=== PATIENT | male | born 1960 | race Caucasian/White ===

== ENCOUNTER 2016-04-28 16:24 | Emergency (ER) | payer BC, OTHER ==
[~2016-04-28] VITALS: Ht 177.8 cm; Wt 90.0 kg
[~2016-04-28 16:24] MED LIST: ATEN1TAB74 PO; CHLO25CA PO; PAXI20TA26 PO
[2016-04-28 16:26] VITALS: BP 184/120; PULSE 126; RESP 18; TEMP 98.2; O2SAT 95
[2016-04-28 16:36] VITALS: BP 161/106; PULSE 118; RESP 22; O2SAT 98
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
[2016-04-28] MEDS ORDERED: chlordiazePOXIDE 25 MG CAP PO ONE (17:15)
[2016-04-28 17:36] LABS: AUTOMATED NEUTROPHIL # 9.8 TH/MM3 (1.8-7.7); BASOPHIL # 0.1 TH/MM3 (0-0.2); BASOPHIL % 0.7 % (0.0-2.0); EOSINOPHIL # 0.1 TH/MM3 (0-0.4); EOSINOPHIL % 0.8 % (0.0-4.0); HEMO FLAGS DIFF FINAL; LYMPH % 21.9 % (9.0-44.0); LYMPHOCYTE # 3.2 TH/MM3 (1.0-4.8); MEAN CELL VOLUME 84.9 FL (80.0-100.0); MEAN CORPUSCULAR HEMOGLOBIN 29.2 PG (27.0-34.0); MEAN CORPUSCULAR HGB CONC 34.4 % (32.0-36.0); MONO % 8.6 % (0.0-8.0); PLATELET COUNT 225 TH/MM3 (150-450); WHITE BLOOD COUNT 14.4 TH/MM3 (4.0-11.0)
[2016-04-28 17:42] LABS: AMPHETAMINE, URINE NEG (NEG); BARBITURATES, URINE NEG (NEG); COCAINE, URINE NEG (NEG)
[2016-04-28 17:49] LABS: ANION GAP 9 MEQ/L (5-15); AST (GOT) 68 U/L (15-37); BICARBONATE 28.4 MEQ/L (21.0-32.0); BLOOD UREA NITROGEN 8 MG/DL (7-18); CHLORIDE 104 MEQ/L (98-107); GLOMERULAR FILTRATION RATE 73 ML/MIN (>89); POTASSIUM 3.4 MEQ/L (3.5-5.1); SODIUM (NA) 141 MEQ/L (136-145)
[2016-04-28 17:52] LABS: ALKALINE PHOSPHATASE 129 U/L (45-117); ALT (GPT) 66 U/L (12-78); TOTAL BILIRUBIN ADULT 0.4 MG/DL (0.2-1.0)
[2016-04-28] MEDS ORDERED: POTASSIUM CHLORIDE 20 MEQ CONTROLLED RELEASE TAB PO ONE (18:00)
[2016-04-28 21:17] VITALS: BP_SYST 170; BP_SYST 172; BP_DIAS 110; BP_DIAS 112; PULSE 98; RESP 17; O2SAT 96
[2016-04-28] MEDS ORDERED: CLON0.2T PO (21:35)
[2016-04-28] MEDS ORDERED: cloNIDine HCL 0.2 MG TAB PO ONE (21:45)
[2016-04-28 22:15] VITALS: BP 155/98; PULSE 104; RESP 17; O2SAT 98
[2016-04-28 22:19] VITALS: BP 155/98
== END 2016-04-28 22:30 | disposition home or self-care (01) ==
LOC: NEPJ 16:24
DX: Z02.89 Encounter for other administrative examinations (principal); F10.20 Alcohol dependence, uncomplicated; R45.851 Suicidal ideations; I10 Essential (primary) hypertension; E78.00 Pure hypercholesterolemia, unspecified; Z86.59 Personal history of other mental and behavioral disorders; Z86.79 Personal history of other diseases of the circulatory system; Z87.19 Personal history of other diseases of the digestive system; Z87.39 Personal history of other diseases of the musculoskeletal system and connective tissue; Z86.69 Personal history of other diseases of the nervous system and sense organs
CPT/HCPCS: 80053; 80307; 85025; 99284

== ENCOUNTER 2017-01-09 22:07 | Emergency (ER) | payer OTHER, BC ==
[~2017-01-09] VITALS: Ht 177.8 cm; Wt 80.0 kg
[~2017-01-09 22:07] MED LIST changes: +CLON0.2T PO
[2017-01-09 22:22] VITALS: BP 127/82; PULSE 90; RESP 16; TEMP 98.2; O2SAT 99
[2017-01-09] MEDS ORDERED: NALOXONE HCL 2 MG/2 ML VIAL ONE (22:29)
[2017-01-09 22:59] LABS: AUTOMATED NEUTROPHIL # 8.8 TH/MM3 (1.8-7.7); BASOPHIL # 0.1 TH/MM3 (0-0.2); BASOPHIL % 0.5 % (0.0-2.0); EOSINOPHIL % 0.4 % (0.0-4.0); HEMATOCRIT 41.2 % (39.0-51.0); HEMO FLAGS DIFF FINAL; LYMPH % 15.6 % (9.0-44.0); LYMPHOCYTE # 1.8 TH/MM3 (1.0-4.8); MEAN CELL VOLUME 86.1 FL (80.0-100.0); MEAN CORPUSCULAR HEMOGLOBIN 29.3 PG (27.0-34.0); MONO % 6.3 % (0.0-8.0); NEUT % 77.2 % (16.0-70.0); PLATELET COUNT 201 TH/MM3 (150-450); RED BLOOD COUNT 4.78 MIL/MM3 (4.50-5.90); RED CELL DISTRIBUTION WIDTH 13.8 % (11.6-17.2); WHITE BLOOD COUNT 11.4 TH/MM3 (4.0-11.0)
[2017-01-09 23:01] LABS: BLOOD, URINE NEG (NEG); GLUCOSE,URINE NEG (NEG); KETONE, URINE NEG (NEG); NITRITE,URINE NEG (NEG); PH, URINE 6.5 (5.0-8.5); URINE COLOR COLORLESS (YELLW/STRAW)
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
[2017-01-09 23:04] LABS: COMMENT (UR) CULT NOT INDICATED; CULTURE IF INDICATED CULT NOT INDICATED
[2017-01-09 23:09] LABS: APTT (PATIENT) 21.7 SEC (24.3-30.1); PROTHROMBIN TIME - PATIENT 9.8 SEC (9.8-11.6)
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
[2017-01-09 23:22] LABS: BLOOD GAS BASE EXCESS -3.3 mmol/L (-2-2); BLOOD GAS CARBOXYHEMOGLOBIN 1.1 % (0-4); BLOOD GAS HCO3 21 mmol/L (22-26); BLOOD GAS METHEMOGLOBIN 0.6 % (0-2); BLOOD GAS O2 HGB SATURATION 95 % (90-100); BLOOD GAS OXYGEN CONTENT 18.5 Vol % (12.0-20.0); BLOOD GAS PCO2 39 mmHg (38-42); BLOOD GAS PO2 98 mmHG (61-120); BLOOD GAS TOTAL HGB 13.8 G/DL (12.0-16.0); CRITICAL VALUE NO; DRAW SITE RT RADIAL; NUMBER OF ARTERIAL PUNCTURES 2; OXYGEN DEVICE NASAL CANNULA; STAT YES; ULNAR PULSE PRESENT; VENT SETTINGS 3
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
[2017-01-09 23:23] LABS: ACETAMINOPHEN LESS THAN 2.0 MCG/ML (10.0-30.0); ALKALINE PHOSPHATASE 97 U/L (45-117); CREATINE KINASE 271 U/L (39-308); TOTAL BILIRUBIN ADULT 0.2 MG/DL (0.2-1.0)
[2017-01-09 23:25] VITALS: O2SAT 99
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
[2017-01-09 23:27] LABS: ALT (GPT) 76 U/L (12-78); AST (GOT) 49 U/L (15-37); BLOOD UREA NITROGEN 13 MG/DL (7-18); CHLORIDE 110 MEQ/L (98-107); GLOMERULAR FILTRATION RATE 89 ML/MIN (>89)
[2017-01-09 23:28] LABS: ALCOHOL 379 MG/DL (0-5); ANION GAP 14 MEQ/L (5-15); BICARBONATE 19.9 MEQ/L (21.0-32.0); MAGNESIUM 2.1 MG/DL (1.5-2.5); POTASSIUM 3.2 MEQ/L (3.5-5.1); SODIUM (NA) 144 MEQ/L (136-145)
[2017-01-09] MEDS ORDERED: SODIUM CHLOR 0.9% 1000 ML INJ 1,000 ML IV SCH (23:30)
[2017-01-09] MEDS ORDERED: NALOXONE HCL 2 MG/2 ML VIAL IV PUSH ONE (23:30)
[2017-01-09] MEDS ORDERED: ONDANSETRON HCL 4 MG/2 ML VIAL IV PUSH ONE (23:30)
[2017-01-09 23:41] LABS: CKMB 2.8 NG/ML (0.5-3.6)
[2017-01-10] MEDS ORDERED: THIAMINE INJ 100 MG in SODIUM CHLORIDE 0.9% INJ 100 ML IV ONE (00:15)
[2017-01-10] MEDS ORDERED: DIPHTH/TETANUS/ACEL PERTUSSIS (BOOSTER) 0.5 ML VIAL/PFS IM ONE (00:15)
[2017-01-10] MEDS ORDERED: ceFAZolin 2 GM PREMIX 50 ML IV ONE (00:15)
[2017-01-10 00:18] VITALS: BP 138/91; PULSE 80; RESP 18; O2SAT 96
[2017-01-10 00:40] VITALS: BP 118/68; PULSE 78; RESP 18; O2SAT 98
[2017-01-10 01:17] VITALS: BP 120/69; PULSE 78; RESP 18; O2SAT 99
[2017-01-10] MEDS ORDERED: POTASSIUM CHLOR 10 MEQ PREMIX 100 ML IV ONE (02:30)
[2017-01-10] MEDS ORDERED: ONDANSETRON HCL 4 MG/2 ML VIAL IV ONE (03:15)
[2017-01-10] MEDS ORDERED: POTASSIUM CHLORIDE 25 MEQ EFFERVESCENT TAB PO ONE (04:00)
--- NOTE | 2017-01-10 19:25 | EKG ---
Date Performed: 01/09/2017 Time Performed: 23:17:20 PTAGE: 56 years EKG: Sinus rhythm NONSPECIFIC T-WAVE ABNORMALITY Since previous tracing, no significant change noted BORDERLINE ECG PREVIOUS TRACING : 12/01/2007 19.50 DOCTOR: Reina Henry Interpretating Date/Time 01/10/2017 19:23:22
== END 2017-01-10 07:20 ==
LOC: NEPE 22:07
DX: R41.82 Altered mental status, unspecified (principal); F10.129 Alcohol abuse with intoxication, unspecified; S40.022A Contusion of left upper arm, initial encounter; S60.812A Abrasion of left wrist, initial encounter; S60.811A Abrasion of right wrist, initial encounter; S80.212A Abrasion, left knee, initial encounter; S80.211A Abrasion, right knee, initial encounter; S90.812A Abrasion, left foot, initial encounter; V49.9XXA Car occupant (driver) (passenger) injured in unspecified traffic accident, initial encounter
CPT/HCPCS: 36600; 70450; 71010; 72125; 72170; 73030; 73110; 73630; 80053; 80307; 81001; 82140; 82550; 82552; 82805; 83690; 83735; 83880; 83930; 83935; 84484; 85025; 85610; 85730; 90471; 90715; 93005; 96361; 96365; 96366; 96368; 96375; 99285; J0690; J2310; J2405; J3411; J7030; J3480

== ENCOUNTER 2017-12-09 09:50 | Observation (INO) ==
[2017-12-09 11:51] LABS: Baso # (Auto) 0.1 th/mm3 (0.0-0.2); Baso % (Auto) 0.8 % (0.0-2.0); Eos # (Auto) 0.2 th/mm3 (0.0-0.4); Eos % (Auto) 1.6 % (0.0-4.0); Hematocrit 42.8 % (39.0-51.0); Hemoglobin 15.1 gm/dL (13.0-17.0); Lymph % (Auto) 19.5 % (9.0-44.0); Mean Corpuscular HGB Conc 35.3 % (32.0-36.0); Mean Platelet Volume 8.9 fL (7.0-11.0); Mono # (Auto) 0.9 th/mm3 (0.0-0.9); Mono % (Auto) 8.4 % (0.0-8.0); Neut # (Auto) 7.1 th/mm3 (1.8-7.7); Neut % (Auto) 69.7 % (16.0-70.0); Platelet Count 179 th/mm3 (150-450); Red Blood Count 5.03 mil/mm3 (4.50-5.90); Red Cell Distribution Width 14.6 % (11.6-17.2); White Blood Count 10.2 th/mm3 (4.0-11.0)
[2017-12-09 12:13] LABS: Alanine Aminotransferase 55 U/L (12-78); Albumin 3.9 g/dL (3.4-5.0); Anion Gap 8 meq/L (5-15); Aspartate Aminotransferase 47 U/L (15-37); Blood Urea Nitrogen 24 mg/dL (7-18); Carbon Dioxide 23.8 meq/L (21.0-32.0); Chloride 112 meq/L (98-107); Glomerular Filtration Rate 67 mL/min (>89); Glucose,Random 87 mg/dL (74-106); Sodium 144 meq/L (136-145)
[2017-12-09 12:15] LABS: Alkaline Phosphatase 100 U/L (45-117); Total Protein 7.4 g/dL (6.4-8.2)
[2017-12-09 12:44] LABS: Activated Partial Thrombo Time 24.3 sec (23.4-31.7)
[2017-12-09] MEDS ORDERED: Acetaminophen 325 MG Tablet PO PRN (13:17)
--- NOTE | 2017-12-09 13:55 | ED ---
HPI General Chief Complaint: Neuro Symptoms/Deficit Stated Complaint: Poss MRI Follow Up/Doctor Sent Time Seen by Provider: 12/09/17 10:57 History of Present Illness HPI Narrative: This patient has had waxing and waning neurologic symptoms for 5 weeks. He has had headaches and blurry vision and some speech slurring issues. He has not had any definitive motor weakness. His neurologist Dr. Mojica ordered an outpatient MRI of the brain this morning. He got the results and was referred to the emergency room. Symptoms moderately severe. Duration is 5 weeks. No alleviating factors. No exacerbating factors. He denies blood thinners. He is on a baby aspirin. Related Data Home Medications Medication Instructions Recorded Confirmed dronedarone [Multaq] 400 mg PO BID 12/09/17 12/09/17 indomethacin 50 mg PO TID PRN 12/09/17 12/09/17 pantoprazole 20 mg PO DAILY 12/09/17 12/09/17 topiramate 50 mg PO DAILY 12/09/17 12/09/17 Allergies Allergy/AdvReac Type Severity Reaction Status Date / Time No Known Allergies Allergy Verified 12/09/17 10:09 Review of Systems ROS: all other systems reviewed are negative PMFSH Social History Social History Substance History: No History of Abuse Second Hand Smoke Exposure: No Smoking Status: Never smoker How Often Do You Have a Drink Containing Alcohol: Never Recent Travel in [facility] within the Last 8 Weeks: No Recent Out of Country Travel within the Last 8 Weeks: No Immunization History Tetanus Immunization: <5 Years Exam Narrative Exam Narrative: GENERAL: Well-nourished, well-developed patient in no apparent distress. SKIN: Focused skin assessment reveals no rash and nodules. Skin is Warm and dry. HEAD: Atraumatic. Normocephalic. EYES: Pupils equal and round. No scleral icterus. No injection or drainage. ENT: No nasal bleeding or discharge. Mucous membranes pink and moist. NECK: Trachea midline. No JVD. CARDIOVASCULAR: Regular rate and rhythm. No murmur appreciated. RESPIRATORY: No accessory muscle use. Clear to auscultation. Breath sounds equal bilaterally. GASTROINTESTINAL: Abdomen soft, non-tender, nondistended. Hepatic and splenic margins not palpable. MUSCULOSKELETAL: No obvious deformities. No clubbing. No cyanosis. No edema. NEUROLOGICAL: Awake and alert. No obvious cranial nerve deficits. Motor grossly within normal limits. Normal speech. PSYCHIATRIC: Appropriate mood and affect; insight and judgment normal. Course Initial Documented Vital Signs Temperature 98.2 F 12/09/17 09:55 Pulse Rate 78 12/09/17 09:55 Respiratory Rate 20 12/09/17 09:55 Blood Pressure 129/72 12/09/17 09:55 Pulse Oximetry 98 12/09/17 09:55 Last Documented Vital Signs Temperature 98.2 F 12/09/17 09:55 Pulse Rate 76 12/09/17 10:24 Respiratory Rate 17 12/09/17 10:24 Blood Pressure 152/83 H 12/09/17 10:24 Pulse Oximetry 99 12/09/17 10:24 Medical Decision Making MDM Narrative Medical decision making narrative: This is a 57-year-old male with 5 weeks of waxing and waning neurologic symptoms and abnormal small brainstem infarct in questioning some carotid artery dissection versus obstruction. I reviewed the case in detail with the patient's neurologist Dr. Mojica. He recommends admission and consultation with the on-call neurologist as he does not come here. He recommends CTA of the carotids to further detail them. I have ordered imaging. His labs are reasonably normal. I have reviewed with the hospitalist who will admit Medical Screen Exam Complete: Yes Emergency Medical Condition: Yes Differential Diagnosis Differential Diagnosis: Ischemic CVA, intracranial hemorrhage, carotid dissection Medical Records Medical records reviewed: Yes I reviewed the patient's medical records. Lab Data Lab results narrative: Labs are normal Result diagrams: 12/09/17 11:35 12/09/17 11:35 Lab Results 12/09/17 12/09/17 12/09/17 Range/Units 11:35 11:35 11:45 WBC 10.2 (4.0-11.0) th/mm3 RBC 5.03 (4.50-5.90) mil/mm3 Hgb 15.1 (13.0-17.0) gm/dL Hct 42.8 (39.0-51.0) % MCV 85.0 (80.0-100.0) fL MCH 30.0 (27.0-34.0) pg MCHC 35.3 (32.0-36.0) % RDW 14.6 (11.6-17.2) % Plt Count 179 (150-450) th/mm3 MPV 8.9 (7.0-11.0) fL Neut % (Auto) 69.7 (16.0-70.0) % Lymph % (Auto) 19.5 (9.0-44.0) % [place] % (Auto) 8.4 H (0.0-8.0) % Eos % (Auto) 1.6 (0.0-4.0) % Baso % (Auto) 0.8 (0.0-2.0) % Neut # (Auto) 7.1 (1.8-7.7) th/mm3 Lymph # (Auto) 2.0 (1.0-4.8) th/mm3 [place] # (Auto) 0.9 (0.0-0.9) th/mm3 Eos # (Auto) 0.2 (0.0-0.4) th/mm3 Baso # (Auto) 0.1 (0.0-0.2) th/mm3 WBC Differential . Differential Comment Auto diff final PT 10.0 (9.8-11.6) sec INR 1.0 Ratio APTT 24.3 (23.4-31.7) sec Sodium 144 (136-145) meq/L Potassium 4.0 (3.5-5.1) meq/L Chloride 112 H (98-107) meq/L Carbon Dioxide 23.8 (21.0-32.0) meq/L Anion Gap 8 (5-15) meq/L BUN 24 H (7-18) mg/dL Creatinine 1.13 (0.60-1.30) mg/dL Estimated GFR 67 L (>89) mL/min Random Glucose 87 (74-106) mg/dL Calcium 9.0 (8.5-10.1) mg/dL Total Bilirubin 0.5 (0.2-1.0) mg/dL AST 47 H (15-37) U/L ALT 55 (12-78) U/L Alkaline Phosphatase 100 (45-117) U/L Total Protein 7.4 (6.4-8.2) g/dL Albumin 3.9 (3.4-5.0) g/dL Discharge Plan Discharge Disposition Patient Disposition: 30 Still Patient Discharge Details Diagnosis: Brain stem infarction Physicians Team ED Provider: Arnoldo Robins Primary Care Provider: UNKNOWN, Other Providers: Niki Edwards Rxs /Orders / Referrals /Forms Prescriptions: No Action topiramate 25 mg Tablet 50 mg PO DAILY RF: 0 pantoprazole 20 mg Tablet,Delayed Release (Dr/Ec) 20 mg PO DAILY RF: 0 indomethacin 25 mg Capsule 50 mg PO TID PRN (Reason: Headache) RF: 0 dronedarone [Multaq] 400 mg Tablet 400 mg PO BID RF: 0 Discharge Interventions Interventions: Vital Signs Last Done: 12/09/17 10:24 Status ED Status: With Doctor
[2017-12-09] MEDS ORDERED: Heparin - SQ 10,000 UNITS/ML Vial SQ SCH (14:00)
--- NOTE | 2017-12-09 14:46 | CT ---
EXAM DATE: 12/09/2017 2:35 PM EDT AGE/SEX: 57 years / Male INDICATIONS: Headache, dizziness, and visual disturbances for one month. MRI this [place] at [facility] [place]. CLINICAL DATA: This is the patient's initial encounter. Patient reports that signs and symptoms have been present for 1 month and indicates a pain score of 5/10. MEDICAL/SURGICAL HISTORY: None. None. RADIATION DOSE: 40.64 CTDI (mGy) COMPARISON: [place], [place] BRAIN W/O CONTRAST, 12/09/2017[place] [facility] [place]/09/2017. . TECHNIQUE: CT of the head without contrast. Using automated exposure control and adjustment of the mA and/or kV according to patient size, radiation dose was kept as low as reasonably achievable to ob tain optimal diagnostic quality images. DICOM format image data is available electronically for revi ew and comparison. FINDINGS: Cerebrum: The ventricles are normal. There is mild generalized atrophy. No midline shift, mass lesio n, hemorrhage or acute infarction. No extraaxial fluid collections are seen. Posterior Fossa: The cerebellum and brainstem demonstrate no acute abnormality. The 4th ventricle is midline. The cerebellopontine angle is within normal limits. Extracranial: The visualized sinuses are clear. Skull: The calvaria is intact. No skull fracture. CONCLUSION: 1. No acute intracranial abnormality is identified in this noncontrast examination. Overall, no sign ificant change is appreciated compared to 01/09/2017 examination. The small infarct documented on toda y's outside MRI in the right medulla cannot be identified on this exam. 2. Today's MRI also documented abnormal signal within the right intracranial internal carotid artery indicating possible dissection or occlusion. . Electronically signed by: Sy Austin MD 12/09/2017 2:44 PM EDT
--- NOTE | 2017-12-09 15:19 | P.HP ---
History of Present Illness Primary Care Physician: UNKNOWN History of Present Illness: 57-year-old male with a history of migraines in atrial fibrillation presents to the ER on recommendation from his neurologist after an MRI revealed infarction of the brainstem coupled with possible occlusion of the right internal carotid artery. His symptoms began acutely on November 04 when he was at the gym lifting weights. He stood up and had immediate pressure behind his right eye, followed by a bright aura in the eye and associated dizziness. A kaleidoscope effect persisted in that eye and the next day he visited an mechanism inspector who told him it was an ocular migraine. The symptoms persisted for 2 weeks and then mostly resolved. However, headaches have been worsening since the event. He has right facial numbness intermittently. He gets a right temporal headache that shoots to his right jaw. He commonly gets a posterior headache that is associated with positional changes. His primary care physician referred him to cardiology given his history of atrial fibrillation, he received an echocardiogram, electrocardiac evaluation, stress test 2 weeks ago, but all of these tests were normal. He has also had associated numbness on the posterior aspect of his left arm extending from his elbow to his fingertips that is made worse with weightlifting activity. He also reports that he gets words backwards at times. He has atrial fibrillation that runs in his family, had A. fib at a young age but had an ablation in 2016 without recurrence since then. He denies any nausea vomiting or diarrhea. Review of Systems All other systems reviewed negative except as stated in HPI PMFSH - History History Provided By: Patient - Medical History Medical History: Medical History (Last Updated 12/09/17 @ 15:13 by Renzo Burkett MD) Atrial fibrillation Migraines - Surgical History Surgical History: Surgical History (Last Updated 12/09/17 @ 15:13 by Renzo Burkett MD) H/O hernia repair - Family History Family History: Family History (Last Updated 12/09/17 @ 15:14 by Renzo Burkett MD) Other Atrial fibrillation Coronary artery disease Hypertension Migraines Type 2 diabetes mellitus - Tobacco History Second Hand Smoke Exposure: No Tobacco Use In Past 30 Days: No Smoking Status: Never smoker - Alcohol History How Often Do You Have a Drink Containing Alcohol: Never - Substance Use History Substance History: No History of Abuse - Travel History Recent Travel in the [facility] Within the Last 8 Weeks: No Recent Travel Out of the Country Within the Last 8 Weeks: No - Immunization History Tetanus Immunization: <5 Years Medications and Allergies Active Medications: Active Medications Acetaminophen (Tylenol) 650 mg PO Q4H PRN PRN Reason: Temp > 100.4 Heparin Sodium (Porcine) (Heparin Inj) 5,000 units SQ Q12H RAFFI Last Admin: 12/09/17 14:16 Dose: 5,000 units Ondansetron HCl (Zofran Inj) 4 mg IV.PUSH Q6H PRN PRN Reason: NAUSEA OR VOMITING Sennosides (Senokot) 17.2 mg PO Q12H PRN PRN Reason: Moderate Constipation Allergies Allergy/AdvReac Type Severity Reaction Status Date / Time No Known Allergies Allergy Verified 12/09/17 10:09 Home Medications Medication Instructions Recorded Confirmed Type dronedarone [Multaq] 400 mg PO BID 12/09/17 12/09/17 History indomethacin 50 mg PO TID PRN 12/09/17 12/09/17 History pantoprazole 20 mg PO DAILY 12/09/17 12/09/17 History topiramate 50 mg PO DAILY 12/09/17 12/09/17 History Exam Vital signs: Vital Signs 12/09/17 09:55 12/09/17 10:24 Temperature 98.2 F Pulse Rate 78 76 Respiratory Rate 20 17 Blood Pressure 129/72 152/83 H Pulse Oximetry 98 99 Intake & Output 12/08/17 12/09/17 12/09/17 18:59 06:59 18:59 Weight 84.368 kg Narrative: GENERAL: AAOx3, no acute distress, adequate nutrition SKIN: Warm and dry, no rashes. HEAD: Atraumatic. Normocephalic. EYES: Pupils equal, round, reactive to light. No scleral icterus. No injection or drainage. ENT: No nasal bleeding or discharge. Moist mucous membranes. Nonerythematous oropharynx. NECK: Trachea midline. No JVD. Thyroid size within normal limits. CARDIOVASCULAR: Regular rate and rhythm. No murmur, no gallops, no rubs. RESPIRATORY: Clear and equal to auscultation bilaterally. No crackles, no wheezes. No accessory muscle use. GASTROINTESTINAL: Abdomen soft, non-tender, nondistended, normal active bowel sounds. Hepatic and splenic margins not palpable. MUSCULOSKELETAL: Extremities without clubbing or cyanosis. No obvious deformities. No edema. NEUROLOGICAL: Awake and alert. No obvious cranial nerve deficits. Motor grossly within normal limits. No focal deficits. Five out of 5 muscle strength in the arms and legs. Normal speech. PSYCHIATRIC: Appropriate mood and affect; insight and judgment normal. Results - Labs CBC & Chem 7: 12/09/17 11:35 12/09/17 11:35 Labs: Laboratory Results - last 24 hr 12/09/17 12/09/17 12/09/17 11:35 11:35 11:45 WBC 10.2 RBC 5.03 Hgb 15.1 Hct 42.8 MCV 85.0 MCH 30.0 MCHC 35.3 RDW 14.6 Plt Count 179 MPV 8.9 Neut % (Auto) 69.7 Lymph % (Auto) 19.5 [place] % (Auto) 8.4 H Eos % (Auto) 1.6 Baso % (Auto) 0.8 Neut # (Auto) 7.1 Lymph # (Auto) 2.0 [place] # (Auto) 0.9 Eos # (Auto) 0.2 Baso # (Auto) 0.1 WBC Differential . Differential Comment Auto diff final PT 10.0 INR 1.0 APTT 24.3 Sodium 144 Potassium 4.0 Chloride 112 H Carbon Dioxide 23.8 Anion Gap 8 BUN 24 H Creatinine 1.13 Estimated GFR 67 L Random Glucose 87 Calcium 9.0 Total Bilirubin 0.5 AST 47 H ALT 55 Alkaline Phosphatase 100 Total Protein 7.4 Albumin 3.9 - Imaging Impressions Head CT 12/09/17 00:00 CONCLUSION: 1. No acute intracranial abnormality is identified in this noncontrast examination. Overall, no significant change is appreciated compared to 2016 examination. The small infarct documented on today's outside MRI in the right medulla cannot be identified on this exam. 2. Today's MRI also documented abnormal signal within the right intracranial internal carotid artery indicating possible dissection or occlusion. . Caprini VTE Risk Assessment Caprini VTE Risk Assessment: Moderate/High Risk (score >= 2) Caprini Risk Assessment Model: Point Value = 1 Point Value = 2 Point Value = 3 Point Value = 5 Age 41-60 Minor surgery BMI > 25 kg/m2 Swollen legs Varicose veins or History of unexplained or recurrent spontaneous Oral contraceptives or hormone replacement Sepsis (< 1 month) Serious lung disease, including pneumonia (< 1 month) Abnormal pulmonary function Acute myocardial infarction Congestive heart failure (< 1 month) History of inflammatory bowel disease Medical patient at bed rest Age 61-74 Arthroscopic surgery Major open surgery (> 45 min) Laparoscopic surgery (> 45 min) Malignancy Confined to bed (> 72 hours) Immobilizing plaster cast Central venous access Age >= 75 History of VTE Family history of VTE Factor V Leiden Prothrombin [id number] Lupus anticoagulant Anticardiolipin antibodies Elevated serum homocysteine Heparin-induced thrombocytopenia Other congenital or acquired thrombophilia Stroke (< 1 month) Elective arthroplasty Hip, pelvis, or leg fracture Acute spinal cord injury (< 1 month) Prophylaxis Regimen: Total Risk Factor Score Risk Level Prophylaxis Regimen 0-1 Low Early ambulation 2 Moderate Order ONE of the following: *Sequential Compression Device (SCD) *Heparin 5000 units SQ BID 3-4 Higher Order ONE of the following medications: *Heparin 5000 units SQ TID *Enoxaparin/Lovenox 40 mg SQ daily (WT < 150 kg, CrCl > 30 mL/min) *Enoxaparin/Lovenox 30 mg SQ daily (WT < 150 kg, CrCl > 10-29 mL/min) *Enoxaparin/Lovenox 30 mg SQ BID (WT < 150 kg, CrCl > 30 mL/min) AND/OR *Sequential Compression Device (SCD) 5 or more Highest Order ONE of the following medications: *Heparin 5000 units SQ TID (Preferred with Epidurals) *Enoxaparin/Lovenox 40 mg SQ daily (WT < 150 kg, CrCl > 30 mL/min) *Enoxaparin/Lovenox 30 mg SQ daily (WT < 150 kg, CrCl > 10-29 mL/min) *Enoxaparin/Lovenox 30 mg SQ BID (WT < 150 kg, CrCl > 30 mL/min) AND *Sequential Compression Device (SCD) Assessment and Plan - Plan Brainstem infarction Subacute presentation of a CVA, most symptoms outside of headache have cleared up Onset was right ocular symptoms beginning on November 04 and lasting 2 weeks Patient is here seeking causal factors after having an MRI that showed possible stenosis of right internal carotid He has a history of migraines with ocular migraines that usually last only 30 minutes, but this presentation was 2 weeks Neurology is consulted to assist with workup Right internal carotid artery stenosis Some evidence on MRI of brain, MRA of right and left carotid arteries is pending Consult vascular surgery if diagnosis is confirmed with MRA of carotids h/o atrial fibrillation Received a thorough cardiac workup within the last 2 weeks including stress test , echocardiogram, electrophysiological review It does not seem that his history of arrhythmia is related to his current symptoms Cardiac ablation performed in 2015, no reported issues since then (only PVCs) h/o migraine headaches Possible involvement, but MRI has physical findings on brainstem Neurology consulted to assist with workup of overall clinical picture DVT prophylaxis Lovenox
--- NOTE | 2017-12-09 15:24 | CT ---
EXAM DATE: 12/09/2017 3:09 PM EDT AGE/SEX: 57 years / Male INDICATIONS: Dizziness, headache, and visual disturbances for one month. MRI done today at [facility] CLINICAL DATA: This is the patient's initial encounter. Patient reports that signs and symptoms have been present for 1 day and indicates a pain score of 5/10. MEDICAL/SURGICAL HISTORY: None. None. RADIATION DOSE: 27.16 CTDI (mGy) COMPARISON: [facility], MR BRAIN W/O CONTRAST, 12/09/2017. . TECHNIQUE: Volumetric scanning was performed using a multirow detector CT scanner during bolus infus ion of 74 ml Omnipaque 350 (iohexol) nonionic water-soluble contrast as a single exam dose. The da ta was postprocessed with a variety of visualization algorithms including full-volume maximum intensi ty projection, multiplanar sliding thin-slab reformation, curved-planar reformation, and surface-rend ering techniques. Using automated exposure control and adjustment of the mA and/or kV according to p atient size, radiation dose was kept as low as reasonably achievable to obtain optimal diagnostic branden lity images. DICOM format image data is available electronically for review and comparison. FINDINGS: Aortic Arch: There is a three-vessel origin of the great vessels from the aorta. No evidence of ost ial narrowing Right Carotid: The right internal carotid is occluded at its origin with tapering of the vessels susp icious for dissection. Left Carotid: The common carotid artery is intact. Minimal calcific plaque at the origin of the left internal carotid The carotid bulb has a normal configuration without ulceration or narrowing. The i nternal carotid artery lumen is smooth without stenosis. The external carotid artery is intact. Vertebrals: The vertebral arteries have a symmetric diameter. No stenotic lesions are seen. Percent stenosis is calculated using the diameter of the stenotic region over the diameter of the nor mal distal internal carotid artery. CONCLUSION: 1. Occluded right internal carotid suspicious for dissection 2. Patent left internal carotid with minimal calcific plaque. Electronically signed by: Mirza Sebastian MD 12/09/2017 3:22 PM EDT
--- NOTE | 2017-12-09 15:57 | MB ---
cc: Niik Edwards MD DATE: 12/09/2017 REASON FOR CONSULTATION: Abnormal MRI, stroke right medulla. HISTORY OF PRESENT ILLNESS: This is a 57-year-old man with a history of migraines in the past, questionable dysrhythmia with ablation a couple of years ago for atrial fibrillation. 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 His symptoms started 11/04/2017 at the gym. He was lifting weights, nothing unusual for him, when he started to have pain and pressure behind his right eye, right aura in the eye associated with some dizziness. Subsequently, he went to [facility] to have his election supervisor looked at his eye. Was told it was an ocular migraine. However, the symptoms of headache and pain behind the eye and in the back of the head persisted, even when he is not using a computer. His has been at [facility] for a procedure and has not been on any type of computer for 2 days. The headache would occur and it would come worsen by the afternoon. He states he has had a recent followup with his principal network architect and had a stress test and was told that he has PVCs, but no atrial fibrillation recurrence. A couple times when weightlifting, he has experienced numbness from the elbow to the fingertips, but it has not happened recently. PAST MEDICAL HISTORY: Significant history as stated. ALLERGIES TO MEDICINE: NONE. PAST SURGICAL HISTORY: Hernia repair and cardiac ablation. FAMILY HISTORY: Atrial fibrillation, heart disease, hypertension, migraines and diabetes. SOCIAL HISTORY: Does not smoke, does not abuse drugs or alcohol. PHYSICAL EXAMINATION: VITAL SIGNS: Temperature 98.2, pulse 76, respiratory rate 17, blood pressure 152/83. NECK: Supple. I do not appreciate any bruits. HEART: I would not say it is regular. There are some dysrhythmias at times. It may just be the PVCs heard. He has an extra beat at times. LUNGS: Clear. NEUROLOGIC: She is awake, alert. He is fluent. His pupils are reactive. Visual puga are full. Face symmetrical and tongue midline. He has normal speech. Does not exhibit any weakness. No sensory deficits. Cerebellar is normal. DTRs are 1+. Toes downgoing. Gait is withheld. LABORATORY DATA: CBC is really unremarkable. Coagulation panel is normal. Chemistries: BUN 24, GFR 67, AST 47. Reports of imaging. We have the CT back that shows nothing acute, but looking at the report they confirm the right small infarct in the medulla with abnormal signal and the right ICA occlusion versus dissection. IMPRESSION AND PLAN: 1. Medullary infarct, possible occlusion or dissection. At this point in time, we will get the CTA, results of the [place] of [place] and the carotids. If there is a dissection, he will need to be on heparin. If there is a high-grade stenosis in the arteries as well, he will need to be on heparin with a changeover to oral anticoagulant. 2. Permissible hypertension. Certainly he can be given some analgesics for headache. Maintain him on telemetry and watch him for any recurrence of any atrial fibrillation. I would also get an EKG. Continue current care. Further recommendations will be made accordingly. MD BALJIT Elliott/alissa , 03:26 PM , 03:37 PM
--- NOTE | 2017-12-09 16:29 | P.PNVS ---
Subjective Subjective/Hospital Course: Patient seen Full consult dictated Thanks J Objective Vital Signs / I&O: Vital Signs 12/09/17 09:55 12/09/17 10:24 12/09/17 16:00 Temperature 98.2 F 98.4 F Pulse Rate 78 76 77 Respiratory Rate 20 17 16 Blood Pressure 129/72 152/83 H 149/80 H Pulse Oximetry 98 99 97 Intake & Output 12/08/17 12/09/17 12/09/17 18:59 06:59 18:59 Weight 84.36 kg Other: Weight On Admission 84.36 kg Laboratory Results - last 24 hr 12/09/17 12/09/17 12/09/17 11:35 11:35 11:45 WBC 10.2 RBC 5.03 Hgb 15.1 Hct 42.8 MCV 85.0 MCH 30.0 MCHC 35.3 RDW 14.6 Plt Count 179 MPV 8.9 Neut % (Auto) 69.7 Lymph % (Auto) 19.5 [place] % (Auto) 8.4 H Eos % (Auto) 1.6 Baso % (Auto) 0.8 Neut # (Auto) 7.1 Lymph # (Auto) 2.0 [place] # (Auto) 0.9 Eos # (Auto) 0.2 Baso # (Auto) 0.1 WBC Differential . Differential Comment Auto diff final PT 10.0 INR 1.0 APTT 24.3 Sodium 144 Potassium 4.0 Chloride 112 H Carbon Dioxide 23.8 Anion Gap 8 BUN 24 H Creatinine 1.13 Estimated GFR 67 L Random Glucose 87 Calcium 9.0 Total Bilirubin 0.5 AST 47 H ALT 55 Alkaline Phosphatase 100 Total Protein 7.4 Albumin 3[address] 12/09/17 00:00 CONCLUSION: 1. No acute intracranial abnormality is identified in this noncontrast examination. Overall, no significant change is appreciated compared to 2016 examination. The small infarct documented on today's outside MRI in the right medulla cannot be identified on this exam. 2. Today's MRI also documented abnormal signal within the right intracranial internal carotid artery indicating possible dissection or occlusion. . Neck CTA 12/09/17 11:56 CONCLUSION: 1. Occluded right internal carotid suspicious for dissection 2. Patent left internal carotid with minimal calcific plaque.
--- NOTE | 2017-12-09 17:03 | MB ---
cc: Sheela Bentley MD DATE: 12/09/2017 CONSULTING PHYSICIAN: Sheela Bentley MD, Vascular Surgery REASON FOR CONSULTATION: Right internal carotid artery occlusion, medullary infarct, atrial fibrillation attic. HISTORY OF PRESENT ILLNESS: This is a 57-year-old male who is otherwise in good health with some below-mentioned issues, had several weeks ago sudden onset of headache and dizziness with pain behind the right eye. At that time, he developed kaleidoscopic effect and was evaluated by Ophthalmology, Cardiology, and a few other services as an outpatient. He also stated that he has some weakness in the left hand with numbness in the fingertips and posterior aspect of the hand and arm. All throughout, the patient has had night headaches and pain in the jaw. Now, he presents to the hospital. PAST MEDICAL HISTORY: Atrial fibrillation, hypertension, type 2 diabetes mellitus. PAST SURGICAL HISTORY: Cardiac ablation and inguinal hernia repairs. MEDICATIONS: From the record, minimal. Patient has not had atrial fibrillation since his ablation and has not been on any medication, although about a week ago, was placed back on Multaq for frequent PVCs. PHYSICAL EXAMINATION: GENERAL: Reveals a 57-year-old male. HEENT: Normocephalic. No trauma to head. Pupils equal, reactive. Extraocular muscles intact. No facial weakness. No droop. NECK: Bilateral carotid pulses in the lower neck and then if I followed the internal carotid artery up further, the pulse disappears on the right. CHEST: Bilateral breath sounds. HEART: Regular rate and rhythm. ABDOMEN: The patient did not have any arrhythmias while I was in the room. Soft. Active bowel sounds. EXTREMITIES: Good proximal and distal pulses. No signs of vascular deficit. BACK: Normal. NEUROLOGIC: The patient is fully intact. IMPRESSION AND RECOMMENDATIONS: I reviewed laboratory and diagnostic procedures. This gentleman indeed has a tiny medullary possible infarct on MRI, which I do not see on CT of the head. On CTA of the neck, the patient does have complete occlusion of the right internal carotid artery and I agree with Dr. Sebastian that this could be probably dissection, but in the end, vessel is occluded and blood was obviously coming from the other side. 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 Unfortunately, there is no surgical procedure endovascular procedure or other intervention that would reopen a completely occluded carotid artery. If the carotid artery is stenosed or even has a string sign flow, it can be operated on. Once it is completely occluded, there are no possibilities left. Those patients unfortunately are relegated to the blood flow from the remaining 3 vessels. In addition, probably it is william for the patient to be worked up for common causes of degenerative vascular disease in addition to simple arteriosclerosis, which includes immunoreactive disorders like lupus, ankylosing spondylitis and such. This can be probably done on an outpatient basis. There is no study that shows that this patient is at high risk of the left carotid artery, considering that this one is normal. Unfortunately, I have nothing more to add to his care. Thank you very much for this referral. MD SARAH Junior/nohemi , 04:29 PM , 04:39 PM
[2017-12-09 19:29] VITALS: BP 117/72; PULSE 76; RESP 17; TEMP 98.2; O2SAT 98
--- NOTE | 2017-12-09 19:29 | P.DS ---
Date of admission: 12/09/17 14:01 Primary care physician: UNKNOWN Brief History from admission: 57-year-old male with a history of migraines in atrial fibrillation presents to the ER on recommendation from his neurologist after an MRI revealed infarction of the brainstem coupled with possible occlusion of the right internal carotid artery. His symptoms began acutely on November 04 when he was at the gym lifting weights. He stood up and had immediate pressure behind his right eye, followed by a bright aura in the eye and associated dizziness. A kaleidoscope effect persisted in that eye and the next day he visited an drilling contractor who told him it was an ocular migraine. The symptoms persisted for 2 weeks and then mostly resolved. However, headaches have been worsening since the event. He has right facial numbness intermittently. He gets a right temporal headache that shoots to his right jaw. He commonly gets a posterior headache that is associated with positional changes. His primary care physician referred him to cardiology given his history of atrial fibrillation, he received an echocardiogram, electrocardiac evaluation, stress test 2 weeks ago, but all of these tests were normal. He has also had associated numbness on the posterior aspect of his left arm extending from his elbow to his fingertips that is made worse with weightlifting activity. He also reports that he gets words backwards at times. He has atrial fibrillation that runs in his family, had A. fib at a young age but had an ablation in 2016 without recurrence since then. He denies any nausea vomiting or diarrhea. DS: Summary Hospital Course: 57-year-old male admitted for MRI evidence of a brainstem stroke that occurred approximately 5 weeks ago. On the MRI there was evidence of right internal carotid artery dissection. A CTA of the neck was performed and confirmed dissection. Vascular surgery was consulted and determined that this dissection was matured and not able to be corrected with surgical measures. Upon learning this the patient expressed a wish to go home. He states he will continue taking his baby aspirin as is his habit. He will discuss whether or not a more robust anticoagulant medicine is indicated with Dr. Mojica his outpatient neurologist. At this point vascular surgery has explained to him that whether or not he takes a blood thinner will likely not make a measurable difference in what has already happened or in preventing future issues. I will write a discharge, instructions are to resume home meds and follow-up with Dr. Mojica as soon as possible. - Time Spent with Patient Total time spent providing and/or coordinating discharge services: Less than 30 minutes - Quality: VTE Deep Vein Thrombosis/Pulmonary Embolism Present on Admission: No Exam Vital signs: Vital Signs 12/09/17 09:55 12/09/17 10:24 12/09/17 16:00 Temperature 98.2 F 98.4 F Pulse Rate 78 76 77 Respiratory Rate 20 17 16 Blood Pressure 129/72 152/83 H 149/80 H Pulse Oximetry 98 99 97 Intake & Output 12/09/17 12/09/17 12/10/17 06:59 18:59 06:59 Weight 84.36 kg Other: # Voids 1 Weight On Admission 84.36 kg Results Procedures completed during hospitalization: None Labs on day of discharge: Labs from last 24 hours 12/09/17 12/09/17 12/09/17 11:45 11:35 11:35 WBC 10.2 RBC 5.03 Hgb 15.1 Hct 42.8 MCV 85.0 MCH 30.0 MCHC 35.3 RDW 14.6 Plt Count 179 MPV 8.9 Neut % (Auto) 69.7 Lymph % (Auto) 19.5 [place] % (Auto) 8.4 H Eos % (Auto) 1.6 Baso % (Auto) 0.8 Neut # (Auto) 7.1 Lymph # (Auto) 2.0 [place] # (Auto) 0.9 Eos # (Auto) 0.2 Baso # (Auto) 0.1 WBC Differential . Differential Comment Auto diff final PT 10.0 INR 1.0 APTT 24.3 Sodium 144 Potassium 4.0 Chloride 112 H Carbon Dioxide 23.8 Anion Gap 8 BUN 24 H Creatinine 1.13 Estimated GFR 67 L Random Glucose 87 Calcium 9.0 Total Bilirubin 0.5 AST 47 H ALT 55 Alkaline Phosphatase 100 Total Protein 7.4 Albumin 3.9 - Impressions ITS Impressions Head CT 12/09/17 00:00 CONCLUSION: 1. No acute intracranial abnormality is identified in this noncontrast examination. Overall, no significant change is appreciated compared to 2016 examination. The small infarct documented on today's outside MRI in the right medulla cannot be identified on this exam. 2. Today's MRI also documented abnormal signal within the right intracranial internal carotid artery indicating possible dissection or occlusion. . Neck CTA 12/09/17 11:56 CONCLUSION: 1. Occluded right internal carotid suspicious for dissection 2. Patent left internal carotid with minimal calcific plaque. Discharge Plan - Discharge Disposition Patient Disposition: 01 Discharge Home - Discharge Condition Condition: Good - Discharge Order Discharge Orders: Discharge Order (Routine); Ordered 12/09/17 Ordered By: Renzo Burkett - Physicians Team Primary Care Provider: UNKNOWN, Attending Provider: Mirza Carter Other Providers: Niki Edwards MD ; Sheela Bentley MD
--- NOTE | 2017-12-09 22:02 | CT ---
EXAM DATE: 12/09/2017 2:48 PM EDT AGE/SEX: 57 years / Male INDICATIONS: Dizziness, headache, and visual disturbances for one month. [facility] CLINICAL DATA: This is the patient's initial encounter. Patient reports that signs and symptoms have been present for 1 month and indicates a pain score of 5/10. MEDICAL/SURGICAL HISTORY: None. None. RADIATION DOSE: 27.16 CTDI (mGy) COMPARISON: No prior exams available for comparison. TECHNIQUE: Volumetric scanning was performed using a multi-row detector CT scanner during bolus infu jonathon of 74 ml Omnipaque 350 (iohexol) nonionic water-soluble contrast as a single exam dose. The d ese was post processed with a variety of visualization algorithms including full volume maximum inten sity projection, multi-planar sliding thin slab reformation, curved planar reformation, and surface r endering techniques. Using automated exposure control and adjustment of the mA and/or kV according t o patient size, radiation dose was kept as low as reasonably achievable to obtain optimal diagnostic quality images. DICOM format image data is available electronically for review and comparison. FINDINGS: There is occlusion of the right internal carotid artery within the neck with some reconstitution dist ally but with diminished flow relative to the left side. Within the calvarium the anterior, middle and posterior cerebral arteries are patent. The distal vert ebral arteries and basilar artery are patent. No discrete aneurysm or dissection. CONCLUSION: 1. Reconstitution of the distal right internal carotid artery with diminished flow relative to the l eft side. The right ICA is occluded in the neck. 2. No intracranial arterial vascular stenosis or occlusion. No aneurysm or dissection. . Electronically signed by: Bobby Luke MD 12/09/2017 10:01 PM EDT
--- NOTE | 2017-12-12 00:29 | ECG ---
Date Performed: 12/09/2017 Time Performed: 17:15:47 PTAGE: 57 years EKG: Sinus rhythm NORMAL ECG Since the PREVIOUS TRACING , no significant change noted DOCTOR: Newton Wade Interpretating Date/Time 12/12/2017 00:27:57
== END 2017-12-09 20:02 | disposition home or self-care (01) ==
LOC: NEDA 09:50 → NEPE 09:50 → NEPGCP 15:47
PROVIDERS: ADMIT Hospitalist; ATTEND Hospitalist